=== PATIENT | male | born 1995 | race Hispanic/Latino ===

== ENCOUNTER 2024-09-15 11:18 | Emergency (ER) | payer BC ==
[2024-09-15] MEDS ORDERED: NITROGLYCERIN 0.4 MG/TAB SL ONE (11:49)
[2024-09-15 12:09] LABS: Absolute Eosinophils 0.1 K/uL (0-0.5); Absolute Lymphocytes (CBC) 3.4 K/uL (0.7-4.9); Absolute Monocytes 0.7 K/uL (0.1-1.3); Absolute Neutrophil 8.2 K/uL (1.8-8.0); Basophils % 0.4 % (0-1.3); Eosinophils % 1.1 % (0-4.4); Hematocrit 40.5 % (39.6-49.0); Hemoglobin 13.7 g/dL (13.6-17.9); Lymphocytes % 27.1 % (15.3-44.8); MCH 27.5 pg (27.0-35.0); MCHC 33.8 g/dL (32.0-36.0); MCV 81.3 fL (80-100); MPV 7.1 fL (7.6-11.3); Monocytes % 5.4 % (3.3-12.3); Nucleated Red Blood Cells % 0.1 % (0-0); Platelets 342 thou/uL (152-406); RBC Red Blood Cell Count 4.98 M/uL (4.33-5.43); Red Cell Distribution Width 14.5 % (12.1-15.2)
[2024-09-15 12:27] LABS: ALT/SGPT 42 U/L (16-61); AST/SGOT 18 U/L (15-37); Albumin 3.2 g/dL (3.4-5.0); Albumin/Globulin Ratio 0.7 (1.1-1.8); Alkaline Phosphatase 106 U/L (45-117); Anion Gap 7.7 mEq/L (5.0-15.0); BUN Blood Urea Nitrogen 12 mg/dL (7-18); Bicarbonate 27 mEq/L (21-32); Bilirubin Total 0.4 mg/dL (0.2-1.0); Globulin 4.5 g/dL (2.3-3.5); Glomerular Filtration Rate 137 ml/min (=/>90); Glucose Level 89 mg/dL (74-106); Potassium 3.7 mEq/L (3.5-5.1); Protein, Total 7.7 g/dL (6.4-8.2); Sodium Level 138 mEq/L (136-145)
[2024-09-15 12:30] LABS: Bilirubin Direct < 0.2 mg/dL (0-0.2); Bilirubin Indirect, Calculated 0.2 mg/dL (0.2-0.8); Troponin High Sensitivity < 3.0 pg/mL (<58.9)
--- NOTE | 2024-09-15 12:44 | RAD REPORT ---
EXAMINATION: ONE VIEW CHEST XR CLINICAL INDICATION: Male, 29 years old.,CHEST PAIN TECHNIQUE: Frontal chest projection is submitted. Examination is limited by patient positioning and t echnique. COMPARISON: No prior exam. FINDINGS: The lungs are grossly clear although suboptimal inspiratory effort somewhat limits evaluation. No pn eumothorax or sizable effusion. The heart is normal in size. Mediastinal contours are unremarkable. IMPRESSION: No acute intrathoracic abnormalities.
--- NOTE | 2024-09-15 14:59 | ER ---
Nurse's Notes [facility] Name: Lacho Rivas Age: 29 yrs Sex: Male : 1995 Arrival Date: 09/15/2024 Time: 11:18 Bed 15 Private MD: Diagnosis: Chest pain, unspecified Presentation: 09/15 11:20 Chief complaint: EMS states: CHEST PAIN RADIATING TO LEFT ARM AND LEFT WRIST WHILE db WORKING. "HEAVY" PRESSURE. 324 MG ASA. GIVEN NC 4L BY EMS. Coronavirus screen: Client denies travel out of the [place] in the last 14 days. At this time, the client does not indicate any symptoms associated with coronavirus-19. Ebola Screen: Patient negative for fever greater than or equal to 101.5 degrees Fahrenheit, and additional compatible Ebola Virus Disease symptoms Patient denies exposure to infectious person. Patient denies travel to an Ebola-affected area in the 21 days before illness onset. No symptoms or risks identified at this time. Initial Sepsis Screen: Does the patient meet any 2 criteria? No. Patient's initial sepsis screen is negative. Does the patient have a suspected source of infection? No. Patient's initial sepsis screen is negative. Risk Assessment: Do you want to hurt yourself or someone else? Patient reports no desire to harm self or others. Onset of symptoms. Onset of symptoms was September 15, 2024. Care prior to arrival: Medication(s) given: ASA, 81 mg, x 4, Oxygen administered. via nasal cannula. 11:20 Method Of Arrival: EMS: [facility] db 11:20 Acuity: LORE[place] 2 db Triage Assessment: 11:24 General: Appears in no apparent distress. comfortable, Behavior is calm, cooperative. db Pain: Complains of pain in chest Pain radiates to right hand and right arm. Neuro: Level of Consciousness is awake, alert, obeys commands, Oriented to person, place, time, situation. Cardiovascular: Reports chest pain. Respiratory: Airway is patent Respiratory effort is even, unlabored, Respiratory pattern is regular, symmetrical. Historical: - Allergies: 11:24 No Known Allergies; db - PMHx: 11:24 Diabetes mellitus; Hypertensive disorder; db - Immunization history:: Adult Immunizations unknown. - Infectious Disease History:: Denies. - Social history:: Smoking status: Patient denies any tobacco usage or history of. - Family history:: not pertinent. Screenin:09 [facility] ED Fall Risk Assessment (Adult) History of falling in the last 3 months, db including since admission No falls in past 3 months (0 pts) Confusion or Disorientation No (0 pts) Intoxicated or Sedated No (0 pts) Impaired Gait No (0 pts) Mobility Assist Device Used No (0 pt) Altered Elimination No (0 pt) Score/Fall Risk Level 0 - 2 = Low Risk Oriented to surroundings, Maintained a safe environment. Abuse screen: Denies threats or abuse. Denies injuries from another. Nutritional screening: No deficits noted. Tuberculosis screening: No symptoms or risk factors identified. Assessment: 12:09 Reassessment: Patient appears in no apparent distress at this time. SEE TRIAGE FOR db INITIAL ASSESSMENT. General: Appears in no apparent distress. comfortable. Pain: Complains of pain in chest Pain began suddenly. Neuro: Level of Consciousness is awake, alert, obeys commands, Oriented to person, place, time, situation. 13:06 Reassessment: Patient appears in no apparent distress at this time. Patient and/or db family updated on plan of care and expected duration. Pain level reassessed. Patient is alert, oriented x 3, equal unlabored respirations, skin warm/dry/pink. Patient states feeling better. Patient states symptoms have improved. 14:00 Reassessment: Patient appears in no apparent distress at this time. Patient and/or db family updated on plan of care and expected duration. Pain level reassessed. Patient is alert, oriented x 3, equal unlabored respirations, skin warm/dry/pink. 15:08 Reassessment: Patient appears in no apparent distress at this time. Patient and/or db family updated on plan of care and expected duration. Pain level reassessed. Patient is alert, oriented x 3, equal unlabored respirations, skin warm/dry/pink. Vital Signs: 11:20 BP 121 / 71; Pulse 82; Resp 18; Pulse Ox 97% ; db 12:08 Temp 98.6; Weight 177.81 kg; Height 5 ft. 4 in. ; db 12:30 BP 111 / 61; Pulse 81; Resp 24; Pulse Ox 95% ; db 12:45 BP 119 / 65; Pulse 84; Resp 16; Pulse Ox 96% ; db 13:00 BP 125 / 59; Pulse 81; Resp 20; Pulse Ox 95% on 2 lpm NC; db 13:09 Pain 4/10; db 13:45 BP 105 / 58; Pulse 93; Resp 20; Pulse Ox 95% on R/A; db 14:00 BP 105 / 59; Pulse 86; Resp 16; Pulse Ox 96% ; db 14:30 BP 111 / 57; Pulse 82; Resp 18; Pulse Ox 96% ; db 15:00 BP 127 / 76; Pulse 83; Resp 14; Pulse Ox 97% on R/A; db 12:08 Body Mass Index 67.29 (177.81 kg, 162.56 cm) db 13:09 Pain Scale: Adult db ED Course: 11:21 Patient arrived in ED. db 11:22 Holden Deleon MD is Attending Physician. rt 11:24 Triage completed. db 11:24 Arm band placed on Patient placed in an exam room. db 12:08 Elinor Renteria, RN is Primary Nurse. db 12:09 Patient has correct armband on for positive identification. Bed in low position. Call db light in reach. Side rails up X 1. Provided Education on: LABS AND RADIOLOGY. Client placed on continuous cardiac and pulse oximetry monitoring. NIBP monitoring applied. quality assurance monitor final on. Pulse ox on. NIBP on. 12:09 No provider procedures requiring assistance completed. Inserted saline lock: 20 gauge db in right antecubital area, using aseptic technique. Blood collected. Flushed with 10 mL NS. Patient maintains SpO2 saturation greater than 95% on room air. 12:12 EKG done, by ED staff, reviewed by Holden Deleon MD. am7 12:35 XRAY Chest (1 view) In Process Unspecified. EDMS 14:08 Repeat lab(s) drawn. by me, sent to lab. EKG done. db 14:58 Maikol Fields MD is Referral Physician. rt 15:08 Pillow given. db 15:08 IV discontinued, intact, bleeding controlled, No redness/swelling at site. db Administered Medications: 12:08 Drug: Nitroglycerin Sublingual 0.4 mg Sublingual once; every five minute if needed x3 db Route: Sublingual; 13:09 Drug: Nitroglycerin Sublingual 0.4 mg Sublingual once; every five minute if needed x3 db Route: Sublingual; 15:09 Follow up: Response: No adverse reaction db Medication: 12:09 VIS not applicable for this client. db Outcome: 14:58 Discharge ordered by . rt 15:08 Discharged to home ambulatory, db 15:08 Condition: stable 15:08 Discharge instructions given to patient, Instructed on discharge instructions, follow up and referral plans. 15:09 Patient left the ED. db Signatures: Dispatcher [employer] Elinor Martinez RN RN db Holden Deleon MD MD rt Monserrat Hanks 7
--- NOTE | 2024-09-15 14:59 | EDPHYS ---
Physician Documentation [facility] Name: Lacho Rivas Age: 29 yrs Sex: Male : 1995 Arrival Date: 09/15/2024 Time: 11:18 Bed 15 Private MD: ED Physician Holden Deleon HPI: 09/15 14:05 This 29 yrs old Male presents to ER via EMS with complaints of Chest Pain. rt 14:05 Patient presents to the ED with chest pain rating to left arm, pain is described as a rt heaviness. Denies other acute complaints at this time, denies exertional component. States that the symptoms have significantly proved, not completely resolved. Symptoms are moderate in severity, no other aggravating or alleviating factors.. Historical: - Allergies: 11:24 No Known Allergies; db - PMHx: 11:24 Diabetes mellitus; Hypertensive disorder; db - Immunization history:: Adult Immunizations unknown. - Infectious Disease History:: Denies. - Social history:: Smoking status: Patient denies any tobacco usage or history of. - Family history:: not pertinent. ROS: 14:05 Constitutional: Negative for fever, chills, and weight loss, Respiratory: Negative for rt shortness of breath, cough, wheezing, and pleuritic chest pain, Abdomen/GI: Negative for abdominal pain, nausea, vomiting, diarrhea, and constipation, MS/Extremity: Negative for injury and deformity, Skin: Negative for injury, rash, and discoloration, Neuro: Negative for headache, weakness, numbness, tingling, and seizure, 14:05 Cardiovascular: Positive for chest pain, Negative for edema, Exam: 14:05 Constitutional: This is a well developed, well nourished patient who is awake, alert, rt and in no acute distress. Head/Face: Normocephalic, atraumatic. Chest/axilla: Normal chest wall appearance and motion. Nontender with no deformity. No lesions are appreciated. Cardiovascular: Regular rate and rhythm with a normal S1 and S2. No gallops, murmurs, or rubs. Normal PMI, no JVD. No pulse deficits. Respiratory: Lungs have equal breath sounds bilaterally, clear to auscultation and percussion. No rales, rhonchi or wheezes noted. No increased work of breathing, no retractions or nasal flaring. Abdomen/GI: Soft, non-tender, with normal bowel sounds. No distension or tympany. No guarding or rebound. No evidence of tenderness throughout. Skin: Warm, dry with normal turgor. Normal color with no rashes, no lesions, and no evidence of cellulitis. MS/ Extremity: Pulses equal, no cyanosis. Neurovascular intact. Full, normal range of motion. 14:05 ECG was reviewed by the Attending Physician. 14:26 ECG was reviewed by the Attending Physician. rt Vital Signs: 11:20 BP 121 / 71; Pulse 82; Resp 18; Pulse Ox 97% ; db 12:08 Temp 98.6; Weight 177.81 kg; Height 5 ft. 4 in. ; db 12:30 BP 111 / 61; Pulse 81; Resp 24; Pulse Ox 95% ; db 12:45 BP 119 / 65; Pulse 84; Resp 16; Pulse Ox 96% ; db 13:00 BP 125 / 59; Pulse 81; Resp 20; Pulse Ox 95% on 2 lpm NC; db 13:09 Pain 4/10; db 13:45 BP 105 / 58; Pulse 93; Resp 20; Pulse Ox 95% on R/A; db 14:00 BP 105 / 59; Pulse 86; Resp 16; Pulse Ox 96% ; db 14:30 BP 111 / 57; Pulse 82; Resp 18; Pulse Ox 96% ; db 15:00 BP 127 / 76; Pulse 83; Resp 14; Pulse Ox 97% on R/A; db 12:08 Body Mass Index 67.29 (177.81 kg, 162.56 cm) db 13:09 Pain Scale: Adult db MDM: 11:24 Medical Screening Exam initiated rt 16:31 Differential diagnosis: ACS, nonspecific chest pain, pneumonia, pneumothorax. HEART rt Score: History: Slightly Suspicious (0), ECG: Non specific repolarization disturbance / LBTB / PM (1), Age: < or = 45 years (0), Risk Factors: 1 or 2 risk factors (1), Troponin: < or = 1 x Normal Limit (0), Total Score = 2. Data reviewed: vital signs, nurses notes, lab test result(s), EKG, radiologic studies. Consideration of Admission/Observation Escalation of care including admission/observation considered. Low heart score, 2 negative troponins. 17:23 Independent interpretation of the following test(s) in the Emergency Department X-Ray: rt My interpretation is No infiltrate seen on my interpretation of x-ray images. Test considered but Not performed: CT: Low suspicion for pulmonary embolus, CT angiogram not indicated. Care significantly affected by the following chronic conditions: Diabetes, Hypertension. Counseling: I had a detailed discussion with the patient and/or guardian regarding the historical points, exam findings, and any diagnostic results supporting the discharge/admit diagnosis, lab results, radiology results, the need for outpatient follow up. Response to treatment: the patient's symptoms have markedly improved after treatment. 09/15 11:29 Order name: Basic Metabolic Panel; Complete Time: 12:30 rt 09/15 11:29 Order name: CBC with Diff; Complete Time: 12:30 rt 09/15 11:29 Order name: LFT's; Complete Time: 12:30 rt 09/15 11:29 Order name: Troponin HS; Complete Time: 12:30 rt 09/15 14:01 Order name: Troponin High Sensitivity; Complete Time: 14:53 rt 09/15 11:29 Order name: XRAY Chest (1 view); Complete Time: 12:50 rt 09/15 11:29 Order name: EKG; Complete Time: 11:30 rt 09/15 14:01 Order name: EKG; Complete Time: 14: rt 09/15 11:29 Order name: Cardiac monitoring; Complete Time: 12:11 rt 09/15 11:29 Order name: EKG - Nurse/Tech; Complete Time: 12:11 rt 09/15 11:29 Order name: IV Saline Lock; Complete Time: 12:11 rt 09/15 11:29 Order name: Labs collected and sent; Complete Time: 12:11 rt 09/15 11:29 Order name: O2 Per Protocol; Complete Time: 12:11 rt 09/15 11:29 Order name: O2 Sat Monitoring; Complete Time: 12:11 rt 09/15 14:01 Order name: EKG - Nurse/Tech; Complete Time: 14:11 rt EC:05 Rate is 79 beats/min. Rhythm is regular, Normal Sinus Rhythm with No ectopy. QRS [place] rt is Normal. [place] interval is normal. QRS interval is normal. QT interval is normal. No Q waves. T waves are Inverted in lead III. No ST changes noted. 14:26 Rate is 85 beats/min. Rhythm is regular, Normal Sinus Rhythm with No ectopy. QRS [place] rt is Normal. [place] interval is normal. QRS interval is normal. QT interval is normal. No Q waves. T waves are Inverted in lead III. No ST changes noted. Interpreted by me. Administered Medications: 12:08 Drug: Nitroglycerin Sublingual 0.4 mg Sublingual once; every five minute if needed x3 db Route: Sublingual; 13:09 Drug: Nitroglycerin Sublingual 0.4 mg Sublingual once; every five minute if needed x3 db Route: Sublingual; 15:09 Follow up: Response: No adverse reaction db Disposition Summary: 09/15/24 14:58 Discharge Ordered Notes: Location: Home rt Problem: new rt Symptoms: have improved rt Condition: Stable rt Diagnosis - Chest pain, unspecified rt Followup: rt - With: Maikol Fields MD - When: 2 - 3 days - Reason: Discharge Instructions: - Discharge Summary Sheet rt - Nonspecific Chest Pain, Adult rt Forms: - Medication Reconciliation Form rt - Antibiotic Education rt - Prescription Opioid Use rt - Patient Portal Instructions rt - Leadership Thank You Letter rt Signatures: Dispatcher [employer] Elinor Martinez RN RN Holden Mcguire MD MD rt Corrections: (The following items were deleted from the chart) 14:01 14:01 Troponin High Sensitivity+[id number] ordered. EDAK VJMS
[2024-09-15 15:14] VITALS: TEMP 98.6
[2024-09-15 15:23] VITALS: BP 127/76; O2SAT 97
--- NOTE | 2024-09-17 14:46 | EKG ---
Test Date: 2024-09-15 Test Time: 12:07:01 Food Product Inspector: AM MEASUREMENT RESULTS: Intervals: Rate: 79 GA: 156 QRSD: 94 QT: 386 QTc: 442 [place]: P: 17 GA: 156 QRS: 11 T: 5 INTERPRETIVE STATEMENTS: Normal sinus rhythm Inferior infarct, age undetermined Abnormal ECG Compared to ECG 11/29/2009 09:34:55 Myocardial infarct finding now present Left ventricular hypertrophy no longer present Early repolarization no longer present Electronically Signed On 09-17-24 14:42:33 CDT by Erasmo Mcclelland
--- NOTE | 2024-09-17 14:46 | EKG ---
Test Date: 2024-09-15 Test Time: 14:06:16 Dispatcher [employer]: [place] MEASUREMENT RESULTS: Intervals: Rate: 85 LA: 154 QRSD: 90 QT: 382 QTc: 454 [place]: P: 30 LA: 154 QRS: 13 T: 18 INTERPRETIVE STATEMENTS: Normal sinus rhythm with sinus arrhythmia Moderate voltage criteria for LVH, may be normal variant Borderline ECG Compared to ECG 11/29/2009 09:34:55 Early repolarization no longer present Electronically Signed On 09-17-24 14:41:55 CDT by Erasmo Mcclelland
== END 2024-09-15 15:09 | disposition home or self-care (01) ==
LOC: ER 11:18
DX: R07.9 Chest pain, unspecified (principal); I10 Essential (primary) hypertension; E11.9 Type 2 diabetes mellitus without complications
CPT/HCPCS: 36415; 71045; 80048; 80076; 84484; 85025; 93005; 99285